=== PATIENT | male | born 1950 | race Caucasian/White ===

== ENCOUNTER 2023-06-27 19:01 | Emergency (ER) | payer MEDICARE, SELFPAY ==
[2023-06-27 19:04] VITALS: BP 146/91; PULSE 97; RESP 18; TEMP 37.2; O2SAT 97; BMI 20.7
--- NOTE | 2023-06-27 19:14 | CRLHL7_ITS ---
For Patients: As a result of the Century Cures Act, medical imaging exams and procedure reports are released immediately into your electronic medical record. You may view this report before your referring provider. If you have questions, please contact your health care provider. INDICATION: History of colostomy, evaluate for bowel obstruction. Abdominal pain. TECHNIQUE: Multiplanar CT examination of the abdomen and pelvis were acquired without the use of intravenous contrast. COMPARISON: CT abdomen pelvis 08/10/2021. FINDINGS: Limited evaluation without the use of intravenous contrast. Lower chest: Linear bandlike opacifications of the lung bases likely due to subsegmental atelectasis and/or scarring. No focal consolidation. Normal heart size. No pleural effusions or pneumothorax. Liver: Normal. Gallbladder/Biliary: Normal. No biliary ductal dilitation. Pancreas: Normal. Spleen: Normal. Adrenal Glands: Normal. Kidneys: Normal size. No obstructive calculi or hydronephrosis. There are several nonobstructive calculi within the collecting system both kidneys bilaterally. Ureters: Unremarkable. Bladder: Small left posterior bladder diverticulum. Otherwise, unremarkable. 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 Nonvisualized appendix. No bowel obstruction. Severe colonic stool burden. Severe colonic diverticulosis, similar thickening of the sigmoid colonic wall, possibly underdistended. No pneumatosis intestinalis. Pelvic organs: Prostatomegaly. Peritoneum: No free fluid or pneumoperitoneum. Vessels: Normal. Evaluation for patency of the vessels is not evaluated on this noncontrast examination. Mild atherosclerotic disease. No portal venous gas. Lymph Nodes: No lymphadenopathy. Abdominal Wall/Soft Tissues: New/worsened left inguinal hernia containing loops of nonobstructed small bowel. Mild diffuse anasarca. Bones: Degenerative changes of the lumbar spine. Stable compression deformity of the L2 vertebral body. Grade 1 degenerative anterolisthesis of L4-5. No acute osseous abnormalities. IMPRESSION: Limited evaluation without the use of intravenous contrast. 1. Stable postsurgical changes status post partial colectomy with left lower quadrant colostomy, grossly unchanged. 2. There is a new left inguinal hernia containing loops of nonobstructed small bowel. No pneumatosis intestinalis. No free fluid within the hernia sac. 3. Severe colonic stool burden. Severe colonic diverticulosis without definite evidence of acute diverticulitis. Similar thickening to the sigmoid colon wall. 4. Enlarged prostate. Please note that all CT scans at this facility use dose modulation, iterative reconstruction, and/or weight-based dosing when appropriate to reduce radiation dose to as low as reasonably achievable. Dictated by Bertin Roche MD @ 06/27/2023 9:33:04 PM (Electronically Signed)
--- NOTE | 2023-06-27 19:14 | ED.GENADULT ---
HPI - General Adult General Time Seen by Provider: 19:15 Date Seen: 06/27/23 Chief complaint: Abdominal Pain Stated complaint: abdominal pain Time Seen by Provider: 06/27/23 19:03 Source: patient Mode of arrival: ambulatory Limitations: no limitations History of Present Illness HPI narrative: [age] male with history of colostomy done for a reason that he can not recall but he had done about 15 years ago he reports having had his colostomy ?drilled? in the past and feels he might need that again he still is having drainage over the last couple days but less output than normal. He has not felt ill no abdominal pain. He does have a what appears to be a hernia around the colostomy especially on the lateral border of the colostomy that is in the left lower quadrant he has not had fever. He has not had fever he has not had chills, he has had no blood in the stool, he is concerned about obstruction. He has been cared for at [facility] and has not been our facility Related Data Home Medications Medication Instructions Recorded Confirmed No Known Home Medications 06/27/23 06/27/23 Allergies Allergy/AdvReac Type Severity Reaction Status Date / Time No Known Drug Allergies Allergy Verified 06/27/23 19:03 Review of Systems Status of ROS: Reports: 6 or more systems reviewed and unremarkable except as noted in History and below PFSH PFS Social History Smoking Status: Current every day smoker What tobacco products do you use: cigarettes Smoking packs per day: 0.8 Smoking cigarettes per day: 16.0 Do you use any of these nicotine containing products: None Second hand tobacco smoke exposure: No How often do you have a drink containing alcohol: 2-4 times a month How many standard drinks containing alcohol do you have on a typical day: 5 or 6 How often do you have six or more drinks on one occasion: Weekly AUDIT-C Alcohol total score: 7 Non-prescribed substance use: marijuana (any form) Non-prescribed substance use details: once a week smokes marijuana. service: Yes Exam Narrative: Exam Narrative: Objective: His vital signs look within normal limits, no fever Pulses regular Abdomen nondistended he has got a little bit of what feels like a hernia around his stoma, the stoma reduces and appears reddened per slightly protrude protruding but does not appear to be necrotic or infected or have other abnormality, there is brownish stool in his colostomy bag. He reports that is been there for the last day or so Extremities are no edema Neurologic nonfocal The patient's skin he has what appears to be skin graft on his lip. Const: Vital Signs, click to edit/add: Vital Signs - 24 hr 06/27/23 19:04 06/27/23 21:00 Temperature 98.9 F Pulse Rate [Pulse Oximeter] 97 76 Respiratory Rate 18 Blood Pressure [Le ft Upper Arm] 146/91 H Pulse Oximetry 97 96 Oxygen Delivery Me thod Room Air Room Air Course Vital Signs Vital signs: Initial Vital Signs Temperature 98.9 F 06/27/23 19:04 Temperature Source Temporal Artery Scan 06/27/23 19:04 Pulse Rate 97 06/27/23 19:04 Pulse Rhythm Regular 06/27/23 19:04 Respiratory Rate 18 06/27/23 19:04 Blood Pressure 146/91 H 06/27/23 19:04 Blood Pressure Mean 109 H 06/27/23 19:04 Blood Pressure Position Supine 06/27/23 19:04 Pulse Oximetry 97 06/27/23 19:04 Oxygen Delivery Method Room Air 06/27/23 19:04 Vital Signs Temperature 98.9 F 06/27/23 19:04 Pulse Rate 97 06/27/23 19:04 Respiratory Rate 18 06/27/23 19:04 Blood Pressure 146/91 H 06/27/23 19:04 Pulse Oximetry 97 06/27/23 19:04 Oxygen Delivery Method Room Air 06/27/23 19:04 Temperature 98.9 F 06/27/23 19:04 Pulse Rate 76 06/27/23 21:00 Respiratory Rate 18 06/27/23 19:04 Blood Pressure 146/91 H 06/27/23 19:04 Pulse Oximetry 96 06/27/23 21:00 Oxygen Delivery Method Room Air 06/27/23 21:00 Medications Administered Medications: Generic Name Dose Route Start Last Admin Trade Name Freq PRN Reason Stop Dose Admin Sodium Chloride 1,000 mls @ 6,000 mls/hr 06/27/23 20:15 06/27/23 20:30 0.9 % Sodium Chloride 1000 Ml IV 06/27/23 20:24 Infused .Q10M HIRAL Infusion Morphine Sulfate 4 mg 06/27/23 20:03 06/27/23 20:11 Morphine 4 Mg/Ml Inj IVP 06/27/23 20:04 4 mg ONCE ONE Administration Medical Decision Making MDM Narrative Medical decision making narrative: [age] white male with history of colostomy for unclear etiology, has been care for at [facility]. This time the patient is here concerned about obstruction. I think at this point a CT scan to be appropriate. We could talk to our general surgeon that point on-call. Patient has had not any illness feeling or diarrhea or vomiting. No evidence of redness around the stoma he does appear to have a hernia near the stoma and some bulging. This is just lateral to the stoma and he reports that is been intermittent. He does report intermittent discomfort every few hours and was brought in by ambulance. Addendum: 7:24 p.m. the patient has an old chart that I was able to access and showed an L2 compression fracture, colostomy for abdominal abscess and sigmoid diverticulitis. History of kidney stones. 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 Addendum 9:20 p.m. patient has been waiting for his read on his CT scan. He does appear to have a peristomal hernia, but there does appear to be air and gas throughout his colon and in his stoma. He did receive some IV fluid and 4 mg of morphine as he has intermittent colicky type pain. At this point will sign the patient over and have the CT reading come back to our my colleague and can discuss with Dr. Swartz our surgeon regarding treatment planning. Lab Data Labs: Lab Results 06/27/23 Range/Units 19:29 WBC 10.34 (4.50-11.00) K/uL RBC 4.23 L (4.30-5.90) m/uL Hgb 13.6 (13.5-17.5) gm/dL Hct 40.6 (37.0-53.0) % MCV 96 (80-100) fL MCH 32 (26-34) pg MCHC 34 (32-36) gm/dL RDW Coeff of Ralph 15.7 H (11.5-15.5) % Plt Count 156 (140-440) K/uL Neut % (Auto) 76.3 H (42.0-72.0) % Lymph % (Auto) 9.2 L (20-44) % [place] % (Auto) 13.6 H (0.0-11.0) % Eos % (Auto) 0.4 (0.0-7.0) % Baso % (Auto) 0.3 (0.0-3.0) % Neut # (Auto) 7.90 H (1.7-7.0) K/uL Lymph # (Auto) 1.00 (0.90-2.90) K/uL [place] # (Auto) 1.40 H (0.00-0.90) K/UL Eos # (Auto) 0.04 (0.00-0.50) K/uL Baso # (Auto) 0.03 (0.00-0.30) K/uL Abs Immat Gran (auto) 0.02 (0.00-0.30) K/uL Imm/Tot Granulo (auto) 0.2 % Sodium 136 (135-149) mmol/L Potassium 4.0 (3.6-5.1) mmol/L Chloride 106 (96-114) mmol/L Carbon Dioxide 24 (20-32) mmol/L Anion Gap 6 L (7-15) mEq/L BUN 19 (7-30) mg/dL Creatinine 0.9 (0.5-1.5) mg/dL Estimated Creat Clear 59.98 Estimated GFR 91 ml/min Glucose 110 (60-115) mg/dL Calcium 9.2 (8.4-10.6) mg/dL C-Reactive Protein 3.8 H (0.5-1.0) mg/dL Discharge Plan Discharge Clinical Impression: Abdominal pain Prescriptions: No Action No Known Home Medications
[2023-06-27 19:36] LABS: Basophils Absolute Auto 0.03 K/uL (0.00-0.30); Basophils Percent Auto 0.3 % (0.0-3.0); Eosinophils Absolute Auto 0.04 K/uL (0.00-0.50); Eosinophils Percent Auto 0.4 % (0.0-7.0); Hematocrit 40.6 % (37.0-53.0); Hemoglobin* 13.6 gm/dL (13.5-17.5); Immature Granulocytes Abs Auto 0.02 K/uL (0.00-0.30); Immature Granulocytes Pct Auto 0.2 %; Lymphocytes Percent Auto 9.2 % (20-44); Mean Corpuscular HGB Conc 34 gm/dL (32-36); Mean Corpuscular Hemoglobin 32 pg (26-34); Mean Corpuscular Volume 96 fL (80-100); Monocytes Percent Auto 13.6 % (0.0-11.0); Neutrophils Percent Auto 76.3 % (42.0-72.0); Platelet Count* 156 K/uL (140-440); RDW Coefficient of Variation % 15.7 % (11.5-15.5); Red Blood Count 4.23 m/uL (4.30-5.90); White Blood Count* 10.34 K/uL (4.50-11.00)
[2023-06-27 19:41] LABS: Slide Review Reflex No
[2023-06-27 19:50] LABS: Chloride* 106 mmol/L (96-114); Sodium* 136 mmol/L (135-149)
[2023-06-27 19:52] LABS: Creatinine* 0.9 mg/dL (0.5-1.5); Est. Creatinine Clearance* 59.98; Estimated Glomerular Filt Rate 91 ml/min
[2023-06-27 19:53] LABS: Anion Gap 6 mEq/L (7-15); Blood Urea Nitrogen* 19 mg/dL (7-30); Calcium* 9.2 mg/dL (8.4-10.6); Carbon Dioxide* 24 mmol/L (20-32); Glucose* 110 mg/dL (60-115)
[2023-06-27] MEDS: 0.9 % SODIUM CHLORIDE 1000 ml 1,000 ML 6000 ML IV (20:11)
[2023-06-27] MEDS: MORPHINE 4 MG/ML INJ IVP (20:11)
[2023-06-27 20:22] LABS: C Reactive Protein* 3.8 mg/dL (0.5-1.0)
[2023-06-27 21:00] VITALS: PULSE 76; O2SAT 96
--- NOTE | 2023-06-27 21:48 | ED_ITS ---
HPI - Abdominal Pain General Chief Complaint: Abdominal Pain Stated Complaint: abdominal pain Time Seen by Provider: 06/27/23 19:03 Source: patient Mode of arrival: ambulatory Limitations: no limitations Related Data Home Medications Medication Instructions Recorded Confirmed No Known Home Medications 06/27/23 06/27/23 Allergies Allergy/AdvReac Type Severity Reaction Status Date / Time No Known Drug Allergies Allergy Verified 06/27/23 19:03 PFSH PFS Social History Smoking Status: Current every day smoker What tobacco products do you use: cigarettes Smoking packs per day: 0.8 Smoking cigarettes per day: 16.0 Do you use any of these nicotine containing products: None Second hand tobacco smoke exposure: No How often do you have a drink containing alcohol: 2-4 times a month How many standard drinks containing alcohol do you have on a typical day: 5 or 6 How often do you have six or more drinks on one occasion: Weekly AUDIT-C Alcohol total score: 7 Non-prescribed substance use: marijuana (any form) Non-prescribed substance use details: once a week smokes marijuana. service: Yes Exam Const: Vital Signs, click to edit/add: Vital Signs - 24 hr 06/27/23 19:04 06/27/23 21:00 Temperature 98.9 F Pulse Rate [Pulse Oximeter] 97 76 Respiratory Rate 18 Blood Pressure [Le ft Upper Arm] 146/91 H Pulse Oximetry 97 96 Oxygen Delivery Me thod Room Air Room Air Course Vital Signs Vital signs: Initial Vital Signs Temperature 98.9 F 06/27/23 19:04 Temperature Source Temporal Artery Scan 06/27/23 19:04 Pulse Rate 97 06/27/23 19:04 Pulse Rhythm Regular 06/27/23 19:04 Respiratory Rate 18 06/27/23 19:04 Blood Pressure 146/91 H 06/27/23 19:04 Blood Pressure Mean 109 H 06/27/23 19:04 Blood Pressure Position Supine 06/27/23 19:04 Pulse Oximetry 97 06/27/23 19:04 Oxygen Delivery Method Room Air 06/27/23 19:04 Vital Signs Temperature 98.9 F 06/27/23 19:04 Pulse Rate 97 06/27/23 19:04 Respiratory Rate 18 06/27/23 19:04 Blood Pressure 146/91 H 06/27/23 19:04 Pulse Oximetry 97 06/27/23 19:04 Oxygen Delivery Method Room Air 06/27/23 19:04 Temperature 98.9 F 06/27/23 19:04 Pulse Rate 78 06/27/23 22:12 Respiratory Rate 16 06/27/23 22:12 Blood Pressure 168/86 H 06/27/23 22:12 Pulse Oximetry 97 06/27/23 22:12 Oxygen Delivery Method Room Air 06/27/23 22:12 Medications Administered Medications: Discontinued Medications Generic Name Dose Route Start Last Admin Trade Name Freq PRN Reason Stop Dose Admin Sodium Chloride 1,000 mls @ 6,000 mls/hr 06/27/23 20:15 06/27/23 20:30 0.9 % Sodium Chloride 1000 Ml IV 06/27/23 20:24 Infused .Q10M HIRAL Infusion Ketorolac Tromethamine 30 mg 06/27/23 21:48 06/27/23 21:56 Ketorolac 30 Mg/Ml Inj IVP 06/27/23 21:49 30 mg ONCE ONE Administration Morphine Sulfate 4 mg 06/27/23 20:03 06/27/23 20:11 Morphine 4 Mg/Ml Inj IVP 06/27/23 20:04 4 mg ONCE ONE Administration MDM - Abdominal Pain Lab Data Labs: Lab Results 06/27/23 Range/Units 19:29 WBC 10.34 (4.50-11.00) K/uL RBC 4.23 L (4.30-5.90) m/uL Hgb 13.6 (13.5-17.5) gm/dL Hct 40.6 (37.0-53.0) % MCV 96 (80-100) fL MCH 32 (26-34) pg MCHC 34 (32-36) gm/dL RDW Coeff of Ralph 15.7 H (11.5-15.5) % Plt Count 156 (140-440) K/uL Neut % (Auto) 76.3 H (42.0-72.0) % Lymph % (Auto) 9.2 L (20-44) % [place] % (Auto) 13.6 H (0.0-11.0) % Eos % (Auto) 0.4 (0.0-7.0) % Baso % (Auto) 0.3 (0.0-3.0) % Neut # (Auto) 7.90 H (1.7-7.0) K/uL Lymph # (Auto) 1.00 (0.90-2.90) K/uL [place] # (Auto) 1.40 H (0.00-0.90) K/UL Eos # (Auto) 0.04 (0.00-0.50) K/uL Baso # (Auto) 0.03 (0.00-0.30) K/uL Abs Immat Gran (auto) 0.02 (0.00-0.30) K/uL Imm/Tot Granulo (auto) 0.2 % Sodium 136 (135-149) mmol/L Potassium 4.0 (3.6-5.1) mmol/L Chloride 106 (96-114) mmol/L Carbon Dioxide 24 (20-32) mmol/L Anion Gap 6 L (7-15) mEq/L BUN 19 (7-30) mg/dL Creatinine 0.9 (0.5-1.5) mg/dL Estimated Creat Clear 59.98 Estimated GFR 91 ml/min Glucose 110 (60-115) mg/dL Calcium 9.2 (8.4-10.6) mg/dL C-Reactive Protein 3.8 H (0.5-1.0) mg/dL Discharge Plan Discharge Clinical Impression: Abdominal pain, Inguinal hernia Patient Disposition: Home, Self-Care Condition: Stable Additional Instructions: Take medication as needed and indicated. Use [id number] medicines for constipation such as MiraLax, Dulcolax, senna, Metamucil, magnesium citrate, and others. Follow up with MD for ongoing management. Return if worsening. Prescriptions: No Action No Known Home Medications Stand Alone Forms: [email or web address] Info Instructions
[2023-06-27] MEDS: KETOROLAC 30 MG/ML inj IVP (21:56)
[2023-06-27 22:12] VITALS: BP 168/86; PULSE 78; RESP 16; O2SAT 97
== END 2023-06-27 22:13 | disposition home or self-care (01) ==
PROVIDERS: Emergency Provider Family Medicine
DX: R10.9 Unspecified abdominal pain (principal)
CPT/HCPCS: 36415; 74176; 80048; 82565; 85025; 86140; 94761; 95992; 96374; 96375; 99284; J1885; J2270; J7030

== ENCOUNTER 2023-09-27 08:50 | Emergency (ER) | payer MEDICARE, SELFPAY ==
[2023-09-27 09:00] VITALS: BP 170/85; PULSE 85; RESP 20; TEMP 36.9; O2SAT 96; BMI 22.9
[2023-09-27 09:06] VITALS: BP 165/87
--- NOTE | 2023-09-27 09:12 | ED.GENADULT ---
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 His has a similar illness she has asthma and she is on Zithromax. He presents to the ER for evaluation. He is not short of breath, has no chest pain, has no rigors, has no fever. He has not had a productive cough. Related Data Home Medications Medication Instructions Recorded Confirmed No Known Home Medications 06/27/23 06/27/23 Allergies Allergy/AdvReac Type Severity Reaction Status Date / Time No Known Drug Allergies Allergy Verified 06/27/23 19:03 Review of Systems Status of ROS: Reports: 6 or more systems reviewed and unremarkable except as noted in History and below PFSH PFS Social History Smoking Status: Current every day smoker What tobacco products do you use: cigarettes Smoking packs per day: 0.8 Smoking cigarettes per day: 16.0 Do you use any of these nicotine containing products: None Second hand tobacco smoke exposure: No How often do you have a drink containing alcohol: 2-4 times a month How many standard drinks containing alcohol do you have on a typical day: 5 or 6 How often do you have six or more drinks on one occasion: Weekly AUDIT-C Alcohol total score: 7 Non-prescribed substance use: marijuana (any form) Non-prescribed substance use details: once a week smokes marijuana. service: Yes Exam Narrative: Exam Narrative: Objective: Patient is in no distress pleasant man O2 sat 96% on room air Slightly hypertensive, afebrile HEENT shows clear rhinorrhea, throat clear, neck supple chest is clear bilaterally no rales or wheezing Heart rhythm regular heart murmur Extremities neurologic grossly nonfocal good peripheral perfusion noted Const: Vital Signs, click to edit/add: Vital Signs - 24 hr 09/27/23 09:00 09/27/23 09:06 09/27/23 09:21 Temperature 98.4 F 98.4 F Pulse Rate [Pulse Oximeter] 85 85 Respiratory Rate 20 20 Blood Pressure [Ri ght Upper Arm] 170/85 H 165/87 H 165/87 H Pulse Oximetry 96 Oxygen Delivery Me thod Room Air Course Vital Signs Vital signs: Initial Vital Signs Temperature 98.4 F 09/27/23 09:00 Temperature Source Temporal Artery Scan 09/27/23 09:00 Pulse Rate 85 09/27/23 09:00 Pulse Rhythm Regular 09/27/23 09:00 Respiratory Rate 20 09/27/23 09:00 Blood Pressure 170/85 H 09/27/23 09:00 Blood Pressure Mean 113 H 09/27/23 09:00 Blood Pressure Position Supine 09/27/23 09:00 Pulse Oximetry 96 09/27/23 09:00 Oxygen Delivery Method Room Air 09/27/23 09:00 Vital Signs Temperature 98.4 F 09/27/23 09:00 Pulse Rate 85 09/27/23 09:00 Respiratory Rate 20 09/27/23 09:00 Blood Pressure 170/85 H 09/27/23 09:00 Pulse Oximetry 96 09/27/23 09:00 Oxygen Delivery Method Room Air 09/27/23 09:00 Temperature 98.4 F 09/27/23 09:21 Pulse Rate 85 09/27/23 09:21 Respiratory Rate 20 09/27/23 09:21 Blood Pressure 165/87 H 09/27/23 09:21 Pulse Oximetry 96 09/27/23 09:00 Oxygen Delivery Method Room Air 09/27/23 09:00 Medical Decision Making [facility] Narrative Medical decision making narrative: 73 year white male without any pulmonary history presents with runny nose cough sneezing. This likely acute upper respiratory infection, symptomatic management with Tylenol fluids steam rest. Given his lack of fever hypoxia or other abnormality would not treat with antibiotics, his lung exam is normal. I would check for COVID/influenza/RSV, and will call back the results, recheck with regular doctor next 3-5 days not improving or resolving. Lab Data Labs: Lab Results 09/27/23 Range/Units Unknown SARS-CoV-2 (PCR) Negative SARS-CoV-2 (Negative) Influenza Type A (PCR) POSITIVE PCR FLU A A (Negative) Influenza Type B (PCR) Negative PCR FLU B (Negative) RSV (PCR) Negative PCR RSV (Negative) Discharge Plan Discharge Clinical Impression: Acute upper respiratory infection Patient Disposition: Home, Self-Care Condition: Stable Additional Instructions: Rest, fluids, steam, symptomatic measures, Tylenol as needed, recheck if problems or concerns or not resolving over the next 3-5 days. We will call back the results to your viral studies from your nose swab . Activity Level: No Restrictions Discharge Diet: Regular Prescriptions: No Action No Known Home Medications Follow Up/Referrals: Provider,Not a Local [Primary Care Provider] - Stand Alone Forms: [employer] Info Instructions
[2023-09-27 09:21] VITALS: BP 165/87; PULSE 85; RESP 20; TEMP 36.9
[2023-09-27 09:55] LABS: PCR FLU A POSITIVE PCR FLU A (Negative); PCR FLU B Negative PCR FLU B (Negative); PCR RSV Negative PCR RSV (Negative); SARS PCR* Negative SARS-CoV-2 (Negative)
== END 2023-09-27 09:22 | disposition home or self-care (01) ==
LOC: ED 09:17
PROVIDERS: Emergency Provider Family Medicine
DX: J06.9 Acute upper respiratory infection, unspecified (principal)
CPT/HCPCS: 87631; 99283

== ENCOUNTER 2023-12-26 15:53 | Emergency (ER) | payer MEDICARE, SELFPAY ==
--- NOTE | 2023-12-26 16:49 | PC.NURSE ---
Pt checked into the ER stating that he only needed colostomy bags. He had run out at home and was afraid his current bag would burst. Pt wanted to know what supplies we had in the hospital. Pt shown supplies and stated he was comfortable with using the bags we had here. Pt stated he had other supplies at home. Pt given two colostomy bags and one ostomy wafer. Pt stated he did not want to see a doctor. Pt signed a declination of services after this nurse read pt form. THis nurse told pt that he was welcome to a medical examination at any time. Pt stated he understood and was appreciative of getting the colostomy bags. Pt left ER, ambulatory, after signing declination.
--- NOTE | 2023-12-30 13:37 | PC.NURSE ---
Patient came to the ER asking for another colostomy bag. Printing Press Operator Apprentice met with patient to understand his situation better. Patient stated I ran out and [facility] won't send me anymore this month and my bag is nasty and I need a new one. Patient gave technical writer and editor [facility]. Spoke with a new accounts banking representative at [facility] who stated that patient's prescription is for 20/month. Patient's prescription was able to be refilled on 12/27 and this was initiated and should arrive at patients [facility] today or tomorrow. Language Tutor also stated that patient's insurance will cover 40/month but they would need a new prescription. Printing Press Operator Apprentice asked for prescriber information: Michelle PONCE or Blessing Ho MD at [facility]. Provided patient with this information and phone number to call provider to get a new [facility] Also gave patient one more colostomy bag to get by until his shipment arrives. Patient was very appreciative. Did offer patient to be seen in our ER but he declined. Patient stated Thank you very much, you won't be seeing me again after this.
== END 2023-12-26 16:55 | disposition home or self-care (01) ==
LOC: ED 16:50
PROVIDERS: Emergency Provider Family Medicine
DX: Z53.21 Procedure and treatment not carried out due to patient leaving prior to being seen by health care provider (principal)

== ENCOUNTER 2024-11-07 18:20 | Emergency (ER) | payer MEDICARE, SELFPAY ==
--- OUTSIDE RECORDS SUMMARY | 2024-11-07 18:22 | XMS_ITS | Clinical Summary ---
Author Organization [email or web address] [facility] Address [address] [place] [id number] Care Team Providers Care Switch Technician Name Role Phone Andie Pineda RN Unavailable [phone] Joleen Chandlre RN Unavailable [phone] Chana Mandujano RN Unavailable [phone] Irma Faustin MD Primary Care Provider Allergies No known active allergies Medications Colostomy Bags miscIndications: Colostomy in place (HC) As directed. 40 Each 02/23/2024 Active Active Problems Problem Noted Date Diagnosed Date History of SCC (squamous cell carcinoma) of skin 02/23/2024 Overview (02/23/2024): Lip History of colon cancer 02/23/[address] 09/08/2016 Overview (09/08/2016): Aug 2016: takedown recommended, Patient adamantly declined. Tobacco use 07/04/2013 Resolved Problems Problem Noted Date Diagnosed Date Resolved Date Malignant neoplasm of sigmoi d colon, suspected 08/07/2021 02/23/2024 Lymphadenopathy, abdominal 08/07/2021 0 02/23/2024 Hydroureter, left 08/07/2021 02/23/2024 SCC (squamous cell carcinoma), lip 04/16/2021 02/23/2024 Urinary retention 03/06/2020 02/23/2024 Overview (03/06/2020): Feb 2020: over 1,000ml with placement of seay in the ER. also UTI. Patient returned to ER 3 days later requesting removal of Seay. Renal lithiasis 02/29/2020 02/23/2024 Overview (02/29/2020): Feb 2020: 7mm Right ureteral stone. Gross hematuria 02/13/2020 02/23/2024 Small bowel obstruction 07/17/201807/27 Screening for colon cancer 09/08/2016 0 08/12/2018 Overview (09/08/2016): Aug 2016: had colonoscopy in hospital, but poor prep, Patient declined recommendation for repeat colonoscopy. Abdominal pain 08/30/2016 08/12/2018 Constipation 08/30/2016 08/12/2018 Left inguinal hernia 12/12/2014 019 Diverticulitis 11/30/2014 11/30/2014 Leukocytosis 11/30/2014 08/12/2018 Diverticulitis of intestine with perforation and abscess without bleeding 11/30/2014 08/12/2018 Nephrolithiasis 08/12/2018 Overview (07/02/2012): ESWL x 1 Family History * Patient is adopted Medical History Relation Name Comments Arthritis Father Anesthesia Problem No Family History Blood Disease No Family History Clotting disorder No Family History Relation Name Status Comments Father Mother Social History Tobacco Use Types Packs/Day Years Used Date Smoking Tobacco: Every Day Cigarettes 0.5 35.3 Started: 1989 Smokeless Tobacco: Never Tobacco Cessation:Ready to Q uit: No; Counseling Given: Yes Comments:TIP 08/13/21 Alcohol Use Standard Drinks/Week Comments Yes 6 (1 standard drink = 0.6 oz pure alcohol) 6-7 drinks at a time; once a week on average PHQ-2 Answer Date Recorded PHQ-2 TOTAL SCORE 0 02/23/2024 Social Connections Answer Date Recorded Do you often feel lonely or isolated from those around you? 0 02/23/2024 Financial Resource Strain Answer Date R ecorded Difficulty of Paying Living Expenses 3 02/23/2024 Difficulty of Paying Living Expenses Not on file 02/23/2024 Food Insecurity Answer Date Recorded Do you worry your food will run out before you are able to buy more? 1 02/23/2024 Transportation Needs Answer Date Record ed Does lack of transportation keep you from medica l appointments? 1 02/23/2024 Does lack of transportation keep you from work, meetings or getting things that you need? 1 02/23/2024 Housing Stability Answer Date Recorded What is your housing situation today? 1 02/23/2024 Utilities Answer Date Recorded Do you have trouble paying f or utilities (for example, heat, electricity, water, phone)? 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 Gender Identity Not on file Sexual Orientation Not on file Occupation Industry Job Start Date Job End Date Disability Not on file Not on file Not on file Obstetrics History Last Filed Vital Signs Vital Sign Reading Time Taken Comments Blood Pressure 112/70 02/23/2024 7:39 AM CDT Pulse 80 02/23/2024 7:39 AM CDT Temperature 36.4 C (97.6 F) 08/14/2021 8:00 AM [employer]ING [employer] SERVICE WORKER Respiratory Rate 16 08/14/2021 8:00 AM [employer]ING [employer]OR SERVICE WORKER Oxygen Saturation 98% 02/23/2024 7:39 AM CDT Inhaled Oxygen Concentration - - Weight 63.1 kg (139 lb 3.2 oz) 02/23/2024 7:39 A M CDT Height 169.5 cm (5' 6.73) 02/23/2024 7:39 AM CD T Body Mass Index 21.98 02/23/2024 7:39 AM CDT Plan of Treatment Upcoming Encounters Date Type Department Care Team (Late st Contact Info) Description 11/09/2024 10:40 AM CDT [place] [facility] [place] [address] [place] [address] [place] [address] [place], [place] [id number] Health Maintenance Due Date Last Done Comments Tdap 1961 Hepatitis C screening for ag e 18-79 1969 Pneumococcal series for age 50+ (1 of 2 - PCV) 1970 Tetanus booster [address] (for lung CA) ag e 50-80 2001 Zoster (shingles) series for age 50+ (1 of 2) 2001 COVID-19 vaccine series (2023- season) 2024 BMI (ht and wt on same day) for age 18+ 02/22/2025 02/23/2024, 05/06/2021, 04/17/2021, Additional history exists Medicare Wellness for age 65+ 02/23/2025 02/23/2024, 12/29/2018 Depression screening for age 12+ 02/24/2025 02/25/2024, 02/23/2024, 12/29/2018, Additional history exists Influenza Vaccine (Season Ended) 2025 RSV vaccine for adults or (1 - 1-dose 75+ series) 2026 Flex Sig for age 45-75 08/09/2026 08/09/2021, 2016 Lipids for age 45-75 02/22/2029 02/23/2024, 05/24/20 12 AAA screening age 65-74 Completed 08/10/19, 07/16/2018, 12/03/2014, Additional history exists Medical Devices Implanted Type Area Cpht Device Identifier Shelf Expiration Date Model / Serial / Lot [id number] 1mesh 8x16cm Alloderm Rtu Thickhuman Implanted:Qty: 1 on 07/16/2018 by Lisseth Waters MD at [facility] Explanted:at [facility] (Quantity not on file) Left: Abdomen [employer] - Inamed 05/26/2020 [id number] / [id number] / Adhesion Barrier 3x4in Interceed Absorb - [id number] Implanted:Qty: 1 on 07/16/2018 by Lisseth Waters MD at [facility] Left: Abdomen [employer] / Uro 09/23/2021 [id number]# / / [id number] Adhesion Barrier 3x4in Interceed Absorb - [id number] Implanted:Qty: 1 on 07/16/2018 by Lisseth Waters MD at [facility] [employer] / Uro 06/25/2020 [id number]# / / [id number] Gore Seamer 3.5mm Implanted:Qty: 1 on 04/22/2021 by Edin Odonnell MD at [facility] Explanted:at [facility] (Quantity not on file) Right: Neck 09/28/2025 [id number] / / [id number] Description:VAT OVERHAULER 3.5MM Procedures Procedure Name Priority Date/Time Associated Diagnosis Comments LIPID PANEL W REFLEX MEASURED LDL Routine 02/23/2024 8:06 AM CDT Screening, lipid CT ABDOMEN PELVIS W Routine 08/10/2021 1 0:13 AM [employer]ING [employer] SERVICE WORKER FLEXIBLE SIGMOIDOSCOPY 12:36 PM [employer]ING [employer] SERVICE WORKER from Last 3 Months or Most Recently Relevant to Health Maintenance Results * (ABNORMAL) LIPID PANEL W REFLEX MEASURED LDL (02/23/2024 8:06 AM CDT) CHOLESTEROL,TOTAL 263(H) 100 - 199 mg/dL 02/23/2024 5:14 PM CDT [employer] [facility] Comment: Cholesterol, Total Reference Ranges Desirable <200 mg/dL Borderline 200-239 mg/dL High >=240 mg/dL TRIGLYCERIDES 121 <150 mg/dL 02/23/2024 5:14 PM CDT [employer] [facility] HDL CHOLESTEROL 94 >40 mg/dL 5:14 PM CDT [facility] NON-HDL CHOLESTEROL 169(H) <145 mg/dl 02/23/2024 5:14 PM CDT [facility] CHOL/HDL RATIO 2.80 <4.50 02/23/2024 5:14 PM CDT [facility] LDL CHOLESTEROL 145(H) <=130 mg/dL 02/23/2024 5:14 PM CDT [facility] VLDL CHOLESTEROL 24 <=30 mg/dL 02/23/2024 5:14 PM CDT [facility] PROVIDER ORDERED STATUS RANDOM 02/23/2024 5:14 PM CDT [facility] Blood BLOOD SPECIMEN / Unknown Venipuncture / Unknown 02/23/2024 8:06 AM CDT 02/23/2024 8:06 AM CDT us Irma Faustin MD CHEMISTRY Final R esult [facility] [address] [place] [address], [place] * CT ABDOMEN PELVIS W (08/10/2021 10:13 AM [employer]ING [employer]OR SERVICE WORKER) Anatomical Region Laterality Modality Abdomen, Pelvis, AORTA, LIVER, SPLEEN Computed Tomography 08/10/2021 5:35 PM [employer]ING [employer] SERVICE WORKER Narrative 08/10/2021 5:35 PM [employer]ING [employer]OR SERVICE WORKER For Patients: As a result of the Cures Act, medical imaging exams and procedure reports are released immediately into your electronic medical record. You may view this report before your referring provider. If you have questions, please contact your health care provider. Indication: Abdominal pain Technique: Contrast CT abdomen pelvis with 65 mL on the 350 Comparison: CT abdomen pelvis 07/16/2018 Findings: Heart size normal. No pericardial effusion. Lung bases are clear. The liver pancreas adrenal glands unremarkable. splenic granuloma. Partial colectomy. . Left lower quadrant colostomy with peristomal hernia. No dilated bowel loops seen. Sigmoid colon demonstrates wall thickening. With nonobstructing right renal calcification no hydronephrosis on the right. Normal caliber abdominal aorta. With diffuse mesenteric edema. Moderate left hydronephrosis hydroureter with dilatation of the proximal and mid ureter to the distal 3rd of the ureter with narrowing at this location. No obstructing stone is seen. At the level of the dilated distal left ureter there is soft tissue mass measuring approximately 2.8 x 3.9 centimeters 2/101 likely reflecting adenopathy. There is left pelvic sidewall confluent adenopathy which surrounds the iliac vessels. The prostate gland is enlarged. There is anasarca. Tiny focus of air in the right probable abdominal wall. Air in the urinary bladder. Enlarged prostate gland. Diverticulosis. Superior endplate compression of L2 age indeterminate. No suspicious bony lesions are seen. Impression: 1. Moderate left hydronephrosis and hydroureter with dilatation of left ureter to the distal 3rd of the ureter. There is retroperitoneal adenopathy confluent adenopathy along the left pelvic sidewall likely causing the obstruction. No obstructing stone is seen. Enlarged prostate gland. 2. Diverticulosis. No bowel obstruction seen. Bowel wall thickening of the sigmoid colon. 3. Partial colectomy. Left lower quadrant ostomy with peristomal hernia. 4. Anasarca. Diffuse mild mesenteric edema. Please note that all CT scans at this facility use dose modulation, iterative reconstruction, and/or weight-based dosing when appropriate to reduce radiation dose to as low as reasonably achievable. Dictated by Brissa Shah MD @ 08/10/2021 2:12:46 PM (Electronically Signed) Procedure Note Brissa Shah MD - 08/10/2021 For Patients: As a result of the Cures Act, medical imagingexams and procedure reports are released immediately into your electronicmedical record. You may view this report before your referring provider.If you have questions, please contact your health care provider. Indication: Abdominal pain Technique: Contrast CT abdomen pelvis with 65 mL on the 350 Comparison: CT abdomen pelvis 07/16/2018 Findings: Heart size normal. No pericardial effusion. Lung bases are clear. The liver pancreas adrenal glands unremarkable. splenic granuloma. Partial colectomy. . Left lower quadrant colostomy with peristomal hernia.No dilated bowel loops seen. Sigmoid colon demonstrates wall thickening. With nonobstructing right renal calcification no hydronephrosis on theright. Normal caliber abdominal aorta. With diffuse mesenteric edema. Moderate left hydronephrosis hydroureter with dilatation of the proximaland mid ureter to the distal 3rd of the ureter with narrowing at thislocation. No obstructing stone is seen. At the level of the dilated distalleft ureter there is soft tissue mass measuring approximately 2.8 x 3.9centimeters 2/101 likely reflecting adenopathy. There is left pelvic sidewall confluent adenopathy which surrounds theiliac vessels. The prostate gland is enlarged. There is anasarca. Tiny focus of air in the right probable abdominal wall. Air in the urinary bladder. Enlarged prostate gland. Diverticulosis. Superior endplate compression of L2 age indeterminate. No suspicious bonylesions are seen. Impression: 1. Moderate left hydronephrosis and hydroureter with dilatation of leftureter to the distal 3rd of the ureter. There is retroperitonealadenopathy confluent adenopathy along the left pelvic sidewall likelycausing the obstruction. No obstructing stone is seen. Enlarged prostate gland. 2. Diverticulosis. No bowel obstruction seen. Bowel wall thickening of thesigmoid colon. 3. Partial colectomy. Left lower quadrant ostomy with peristomal hernia. 4. Anasarca. Diffuse mild mesenteric edema. Please note that all CT scans at this facility use dose modulation,iterative reconstruction, and/or weight-based dosing when appropriate toreduce radiation dose to as low as reasonably achievable. Dictated by Brissa Shah MD @ 08/10/2021 2:12:46 PM (Electronically Signed) us Norma Patino DO CT Final Result * FLEXIBLE SIGMOIDOSCOPY (08/09/2021 12:36 PM [employer]ING [employer]OR SERVICE WORKER) 08/09/2021 12:3 6 PM [employer]ING [employer]OR SERVICE WORKER Narrative Transcriptions Harley Hutson MD - 08/09/2021 1:16 PM CST [facility] Patient Name: Enoc Hopkins Procedure Date: 08/09/2021 Gender: Male Date of : 1950 Admit Type: Inpatient Procedure: Flexible Sigmoidoscopy Proceduralist: [facility]arly[facility] Indications/Pre-Op Diagnosis: Abnormal CT of the GI tract Medications: Monitored Anesthesia Care Procedure Description: The patient had risks, benefits and alternatives explained to andgave informed consent.The patient had a stable cardiopulmonary status and judged an adequate candidate for conscious sedation. The endoscope was introduced through the anus and advanced to the sigmoid colon. The flexible sigmoidoscopy was accomplished without difficulty. The patient tolerated the procedure well. The quality ofthe bowel preparation was good. Complications: No immediate complications. Estimated Blood Loss & Specimen: Estimated blood loss: none. Specimen collected: None Findings: Diverticula were found in the sigmoid colon. External and internal hemorrhoids were found. The exam was otherwise without abnormality. Impressions/Post-Op Diagnosis: - Diverticulosis in the sigmoid colon. - External and internal hemorrhoids. - The examination was otherwise normal. - No specimens collected. Recommendation: - Return patient to hospital horta. Harley Hutson MD 08/09/2021 1:15:42 PM This report has been signed electronically. Note Initiated On: 08/09/2021 12:36 PM Harley Hutson MD PROCEDURE ORD Final Result from Last 3 Months or Most Recently Relevant to Health Maintenance Insurance MEDICARE PART A HB ONLY MEDICA [employer] [facility] MEDICARE PPS Advance Directives * Full Code (Latest Code Status on File) Date Activated Date Inactivated Comments 08/07/2021 9:03 PM 08/14/2021 1:36 PM Question Answer Comments Code Status Discussion: Reviewed Preferences * Full Code Date Activated Date Inactivated Comments 04/22/2021 6:05 AM 04/26/2021 1:03 PM Question Answer Comments Code Status Discussion: Not Discussed * Full Code Date Activated Date Inactivated Comments 07/18/2018 7:13 AM 07/20/2018 5:00 PM Question Answer Comments Code Status Discussion: Not Discussed * Full Code Date Activated Date Inactivated Comments 08/30/2016 6:44 PM 09/02/2016 12:58 PM * Full Code Date Activated Date Inactivated Comments 12/03/2014 3:45 PM 12/08/2014 2:26 PM Care Teams Switch Technician Relationship Specialty [place] [address] [place] [address] PCP - General Family Practice 02/23/24 Andie Pineda RN [address] [address] Nurse Navigator - Oncology Oncology 03/15/21 Joleen Chandler, RN [address] [phone] Supply Chain Systems Manager - [facility] Registered Nurse 05/27/21 Chana Mandujano RN [address] [phone] Supply Chain Systems Manager - [facility] Registered Nurse 12/10/21 Jose Sherwood, RN [address] [address], [place], [place] [phone] Supply Chain Systems Manager - [facility] Registered Nurse 02/02/23
--- OUTSIDE RECORDS SUMMARY | 2024-11-07 18:23 | XMS_ITS | Continuity of Care Document ---
Author Name [facility] Organization [facility] Care Team Providers Care Accountant Property Name Role Phone [facility] Unavailable Unavailable Problems Combined list of problems from [facility] and [facility] facilities. It does not include entries that were removed or entered in error. Problem Status Onset Date Problem Type Date of Resolution Comments Source Abdominal Pain of the Left Lower Quadrant (ICD-9-CM 789.04) [facility] Elevated blood pressure reading without diagnosis of hypertension (ICD-9-CM 796. Active Condition [facility] Hematuria * (ICD-9-CM 599.7) Active Condition [facility] Active Condition [place] [facility] Tobacco Use Disorder, Continuous (ICD-9-CM 305.1) Active Condition [facility] Urinary tract infection * (ICD-9-CM 599.0) Active Condition [facility] Social History Combined list of available smoking, tobacco, and other social history from Department [facility] and [facility] facilities. Social History Type Response Date Comment Sourc e Tobacco smoking status NHIS CURRENT TOBACCO USER 02/06/2009 [facility] History of tobacco use CURRENT TOBACCO USER 06/14/2007 [facility] Advance Directives List of completed, amended, or rescinded Advance Directives on record at [facility] facilities. An actual copy of the Directive is not included. Date Advance Directive Provider Source 09/28/2007 ADVANCE DIRECTIVE [facility]
[2024-11-07 18:35] VITALS: BP 164/63; PULSE 97; RESP 18; TEMP 37.4; O2SAT 97; BMI 22.9
[2024-11-07 19:12] LABS: Appearance Urine Clear (Clear); Bilirubin Urine Negative (Negative); Blood Urine 3+ (Negative); Color Urine Yellow (Yellow); Glucose Urine Negative (Negative); Ketones Urine Negative (Negative); Leukocyte Esterase Urine 1+ (Negative); Nitrite Urine Positive (Negative); Protein Urine 2+ (Negative); Specific Gravity Urine 1.025 (1.000-1.030)
[2024-11-07 19:33] LABS: Bacteria Urine Many; Squamous Epithelial Cell Urine Few (None-Few); WBC Clumps Urine Few
--- NOTE | 2024-11-07 19:48 | ED.GENADULT ---
HPI - General Adult General Chief complaint: Urogenital Problems, Male Stated complaint: Prostate pain Time Seen by Provider: 11/07/24 19:19 History of Present Illness HPI narrative: This 74-year-old male comes in reporting lower abdominal pain with some dysuria symptoms including darker colored urine. The symptoms all began today. He does not have any fevers. He arrives here with normal vital signs. Related Data Home Medications ?Medication ?Instructions ?Recorded ?Confirmed No Known Home Medications 06/27/23 11/07/24 Allergies Allergy/AdvReac Type Severity Reaction Status Date / Time No Known Drug Allergies Allergy Verified 11/07/24 18:43 Review of Systems Status of ROS: Reports: 10 or more systems reviewed and unremarkable except as noted in History and below Narrative: Constitutional: No fevers, no weight gain or loss. Eyes: No discharge. No vision changes. HENT: No congestion, no sore throat, no ear pain. Cardiovascular: No chest pain, no palpitations. Respiratory: No shortness of breath, no wheezes, no cough. Gastrointestinal: No vomiting, no diarrhea. Lower abdominal pain. Genitourinary: Darkish red colored urine prior to arrival. Musculoskeletal: Normal range of motion. Skin: No rashes, no pruritis. Neurological: No dizziness, weakness, sensory change, speech change. Endo/Heme/Allergies: No bruising or bleeding. No polydipsia. Pysch: no suicidality, no anxiety, no insomnia. All other systems reviewed and are negative. [facility] Social History Smoking Status: Current every day smoker What tobacco products do you use: cigarettes Smoking packs per day: 0.8 Smoking cigarettes per day: 16.0 Do you use any of these nicotine containing products: None Second hand tobacco smoke exposure: No How often do you have a drink containing alcohol: 2-4 times a month How many standard drinks containing alcohol do you have on a typical day: 5 or 6 How often do you have six or more drinks on one occasion: Weekly AUDIT-C Alcohol total score: 7 Non-prescribed substance use: marijuana (any form) Non-prescribed substance use details: once a week smokes marijuana. service: Yes Exam Narrative: Exam Narrative: Constitutional: Well-developed, well-nourished, no acute distress. HEENT: Normocephalic, atraumatic. Neck: Normal range of motion. Nontender. Supple. Heart: Regular. No murmurs. Normal rate. Intact distal pulses. Lungs: Clear to auscultation. No chest discomfort. No wheezes, rhonchi, or rales. Abdomen: Normal bowel sounds. Tenderness in the lower abdomen.No rebound tenderness. Genitalia: Deferred. Back: No midline tenderness. Normal range of motion. Extremities: Normal range of motion. No injury. Skin: Intact. No rash. Warm. No erythema or pallor. Neurologic: No altered sensation. No weakness. Alert and oriented. Psychiatric: No suicidality. No anxiety or depression. No insomnia. Nursing notes and vitals signs are reviewed. Const: Vital Signs, click to edit/add: Vital Signs - 24 hr 11/07/24 18:35 Temperature 99.4 F Pulse Rate [Right Pulse Oximeter] 97 Respiratory Rate 18 Blood Pressure [Ri ght Forearm] 164/63 H Pulse Oximetry 97 Oxygen Delivery Me thod Room Air Course Vital Signs Vital signs: Initial Vital Signs Temperature 99.4 F 11/07/24 18:35 Temperature Source Temporal Artery Scan 11/07/24 18:35 Pulse Rate 97 11/07/24 18:35 Pulse Rhythm Regular 11/07/24 18:35 Pulse Strength 3+ Normal 11/07/24 18:35 Respiratory Rate 18 11/07/24 18:35 Blood Pressure 164/63 H 11/07/24 18:35 Blood Pressure Mean 96 11/07/24 18:35 Blood Pressure Position Sitting 11/07/24 18:35 Pulse Oximetry 97 11/07/24 18:35 Oxygen Delivery Method Room Air 11/07/24 18:35 Vital Signs Temperature 99.4 F 11/07/24 18:35 Pulse Rate 97 11/07/24 18:35 Respiratory Rate 18 11/07/24 18:35 Blood Pressure 164/63 H 11/07/24 18:35 Pulse Oximetry 97 11/07/24 18:35 Oxygen Delivery Method Room Air 11/07/24 18:35 Temperature 99.4 F 11/07/24 18:35 Pulse Rate 97 11/07/24 18:35 Respiratory Rate 18 11/07/24 18:35 Blood Pressure 164/63 H 11/07/24 18:35 Pulse Oximetry 97 11/07/24 18:35 Oxygen Delivery Method Room Air 11/07/24 18:35 Medical Decision Making MDM Narrative Medical decision making narrative: This patient comes in with dysuria symptoms as described above. He also has pain in his lower abdomen. He arrives here with normal vital signs and his exam is otherwise reassuring. Urinalysis shows evidence of infection with hematuria. the patient received prescription for Keflex 3 times daily for 10 days. He also received an oral dose of Pyridium. I advised him to follow-up with his primary physician or return if worsening. Lab Data Labs: Lab Results 11/07/24 Range/Units 19:01 Urine Color Yellow (Yellow) Urine Appearance Clear (Clear) Urine pH 7.0 (5.0-8.5) Ur Specific [place] 1.025 (1.000-1.030) Urine Protein 2+ A (Negative) Urine Glucose (UA) Negative (Negative) Urine Ketones Negative (Negative) Urine Blood 3+ A (Negative) Urine Nitrite Positive A (Negative) Urine Bilirubin Negative (Negative) Urine Urobilinogen 1.0 (0.2-1.0) Ur Leukocyte Esterase 1+ A (Negative) Urine RBC 10-25 A (0-2) Urine WBC 10-25 A (0-5) Urine WBC Clumps Few A (None) Ur Squamous Epith Cells Few (None-Few) Urine Bacteria Many A (None) Discharge Plan Discharge Clinical Impression: Urinary tract infection Patient Disposition: Home, Self-Care Condition: Stable Additional Instructions: Take medication as prescribed. Take plenty of fluids. Follow up with MD return if symptoms are persistent or worsening. Prescriptions: No Action No Known Home Medications Follow Up/Referrals: Provider,Not a Local [Primary Care Provider] - Stand Alone Forms: [employer] Info Instructions
[2024-11-07] MEDS: PHENAZOPYRIDINE HCL 200 MG TABLET PO (19:57)
--- OUTSIDE RECORDS SUMMARY | 2024-11-07 19:59 | XMS_ITS | Continuity of Care Document ---
Author Name [facility] Organization [facility] Care Team Providers Care Aeronautical Engineering Technologist Name Role Phone [facility] Unavailable Unavailable Problems Combined list of problems from [facility] and [facility] facilities. It does not include entries that were removed or entered in error. Problem Status Onset Date Problem Type Date of Resolution Comments Source Abdominal Pain of the Left Lower Quadrant (ICD-9-CM 789.04) Active Condition [facility] Elevated blood pressure reading without diagnosis of hypertension (ICD-9-CM 796. Active Condition [facility] Hematuria * (ICD-9-CM 599.7) Active Condition [facility] Active Condition [place] [facility] Tobacco Use Disorder, Continuous (ICD-9-CM 305.1) Active Condition [facility] Urinary tract infection * (ICD-9-CM 599.0) Active Condition [facility] Social History Combined list of available smoking, tobacco, and other social history from [facility] and [facility] facilities. Social History Type Response Date Comment Sourc e Tobacco smoking status NHIS CURRENT TOBACCO USER 02/06/2009 [facility] History of tobacco use CURRENT TOBACCO USER 06/14/2007 [facility] Advance Directives List of completed, amended, or rescinded Advance Directives on record at [facility] facilities. An actual copy of the Directive is not included. Date Advance Directive Provider Source 09/28/2007 ADVANCE DIRECTIVE [facility]
--- OUTSIDE RECORDS SUMMARY | 2024-11-07 19:59 | XMS_ITS | Data Portability ---
Author Organization [facility], [facility] Address [address] [place] [address] Care Team Providers Care Waiter/Waitress Tourist Class Name Role Phone GLEN ARMSTRONG Primary Care Provider Assessment No assessment recorded. Plan of Treatment Reminders Order Date Submit Date Provider Last Modified By Organization Details Last Modified Time Details Appointments None recorded. Lab None recorded. Referral None recorded. Procedures None recorded. Surgeries cystoscopy with bladder biopsy (SURG) 2021 022 [email or web address] Not available 12:49:03 cystoscopy with retrograde pyelogram (SURG) 2021 022 [email or web address] Not available 12:58:35 Imaging None recorded. Medication Orders None recorded. Patient TargetsNo targets recorded. Patient InstructionsNo instructions recorded. Reason for Referral None Reported. Results Created Date Observation Date Name Description Value Unit Range Abnormal Flag Note LastModifiedBy Organization Detail LastModifiedTime 08/14/19 22 08/12/2021 CT, pelvi s, w/wo contr ast No observ ation record ed. [email or web address] Not Available 2021 12:10:43 Result Notes None recorded. Procedures Surgical History Date Name Laterality Status Provider Name and Address Organization Details Recorded Time Appendectomy completed Guadalupe Rodriguez [facility] 08/19/2021 09:33:20 Imaging Results Imaging Date Name Status LastModified by Organiz ation Details LastModified Time 08/12/2021 CT, pelvis, w/wo contrast completed Information not available 08/15/2021 12:10:43 Procedure Notes None recorded. Medical Equipment None Reported. Allergies No known drug allergies Medications Name Sig Start Date Stop Date Status Note LastModified by Organization Details LastModified Time nicotine 14 mg/24 hr daily transdermal patch Apply 1 Patch on dry, clean, hairless skin once daily if needed. 08/19 completed Not Available Not Available Not Available polyethylen e glycol 3350 17 gram oral powder packet Mix 17 g in liquid then take by mouth once daily if needed. 08/19 completed Not Available Not Available Not Available bacitracin zinc 500 unit/gram topical ointment APPLY TOPICALLY TO NECK INCISIONS 2 TIMES DAILY 08/19 completed Not Available Not Available Not Available ciprofloxac in 500 mg tablet 08/19 completed Not Available Not Available Not Available oxycodone 5 mg tablet TAKE ONE TABLET BY MOUTH EVERY FOUR HOURS FOR PAIN NEEDED. 08/19 completed Not Available Not Available Not Available hydroxyzine pamoate 25 mg capsule TAKE 1 CAPSULE BY MOUTH EVERY 6-8 HOURS NEEDED 08/19 completed Not Available Not Available Not Available Senna-S 8.6 mg-50 mg tablet TAKE ONE TABLET BY MOUTH TWICE DAILY NEEDED 08/19 completed Not Available Not Available Not Available Vitals Date Recorded Body height Body mass index (BMI) Body weight Provider Name and Address Organization Details Last Updated DateTime 08/19/2021 175.26 cm 19.2 kg/m2 29650.01 g Guadalupe Rodriguez [facility] 08/19/2021 09:31:27 Social History Question Answer Notes LastModified by Organizat ion Details LastModified Time Tobacco Smoking Status Current Every Day Smoker Guadalupe Rodriguez [facility] 08/19/2021 09:33:03 What Is Your Level Of Alcohol Consumption? Moderate [email or web address] Information not available 08/19/2021 What Is Your Level Of Caffeine Consumption? Heavy [email or web address] Information not available 08/19/2021 What Is Your Relationship Status? [email or web address] Information not available 08/19/2021 Are You Sexually Active? Yes [email or web address] Information not available 08/19/2021 How Much Tobacco Do You Smoke? 0.5 PPD [email or web address] Information not available 08/19/2021 Do You Use Any Illicit Or Recreational Drugs? No [email or web address] Information not available 08/19/2021 Do You Or Have You Ever Used Any Other Forms Of Tobacco Or Nicotine? No [email or web address] Information not available 08/19/2021 Sex: Unknown Functional Status None recorded. Mental Status None recorded. Family History Relationship Description Onset Age of this Age Resolved Age Notes LastModified by Organization Details LastModified Time Father No current problems or disability [email or web address] Not available 08/19 09:32:11 Mother No current problems or disability [email or web address] Not available 08/19 09:32:11 Medical History Condition Response Other N High Blood Pressure N Kidney Stones Y Depression N Sexually Transmitted Infection N Cancer N Bleeding Disorder N Lung Disease N GERD/Acid Reflux N High Cholesterol N Diabetes N Heart Disease N Past Encounters Encounter ID Performer Location Encounter Start Date Encounter Closed Date Diagnosis/Indication Diagnosis SNOMED-CT Code Diagnosis ICD10 Code Diagnosis Note [id number] Jude Soria MD [facility] [address] 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 Emiliano Andersen. He had been advised to undergo biopsy but this has not been pursued. 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 I have advised the patient undergo cystoscopy with bladder biopsy, left retrograde ureteropye logram and possible stent. He would like to have this at [facility] if possible or at [facility]. The procedure, risk, possible complicati ons were discussed. Health Concerns Section Related Observation LastModified by Organization Detai ls LastModified Time None Recorded Concern Status LastModified by Organization Details LastModified Time None Recorded Advance Directives Directive None Recorded Payers Encounter Date Sequence Insurance Name Policy Number Policy Quiñonez Covered Member ID Quiñonez Member ID Guarantor Name 08/19/2021 1 [employer] (MEDICARE REPLACEMENT/ ADVANTAGE - PPO) [id number] Enoc Hopkins [id number] Enoc Hopkins Notes Date Note Type Note Provider Name and Address Organization Details Recorded Time 08/19/2021 text/html 71-year-old male and patient of Dr. Emiliano Andersen. Prior history of suspicious bladder lesion and was previously advised to undergo TURBT. This is never scheduled however. Patient recently hospitalized at [facility]. 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 Left pelvic sidewall inflammatory mass versus cancer also noted. Mild left hydronephrosis. Was scheduled to undergo cystoscopy possible biopsy with left retrograde and stent but noted to have Covid and was dismissed. Patient states he feels well and has never had symptoms. Voiding with good force of stream. Jude Soria MD [address], [place], [address], [facility] 08/19/2021 10:52:37
--- OUTSIDE RECORDS SUMMARY | 2024-11-07 19:59 | XMS_ITS | Clinical Summary ---
Author Organization [facility] Address [address] [place] [address] Care Team Providers Care Industrial Relations Worker Name Role Phone Andie Pineda RN Unavailable [phone] Joleen Chandler RN Unavailable [phone] Chana Mandujano RN Unavailable [phone] Irma Faustin MD Primary Care Provider Allergies [...] on file Legal Sex Male 8:38 AM DERRICK WORKER Gender Identity Not on file Sexual Orientation Not on file Occupation Industry Job Start Date Job End Date Disability Not on file Not on file Not on file Obstetrics History Last Filed Vital Signs Vital Sign Reading Time Taken Comments Blood Pressure 112/70 02/23/2024 7:39 AM CDT Pulse 80 02/23/2024 7:39 AM CDT Temperature 36.4 C (97.6 F) 08/14/2021 8:00 AM DERRICK WORKER Respiratory Rate 16 08/14/2021 8:00 AM DERRICK WORKER Oxygen Saturation 98% 02/23/2024 7:39 AM [...] Description 11/09/2024 10:40 AM CDT Office Visit [facility] [address] [place] [address] [place] [address] [place], [place] [id number] Health Maintenance Due Date Last Done Comments [...] history exists Medical Devices Implanted Type Area Food Technologist Device Identifier Shelf Expiration Date Model / Serial / Lot [id number] 1mesh 8x16cm Alloderm Rtu Thickhuman Implanted:Qty: 1 on 07/16/2018 by Lisseth Waters MD at [facility] Explanted:at [facility] (Quantity not on file) Left: Abdomen [employer] - Inamed 05/26/2020 [id number] / [id number] / Adhesion Barrier 3x4in Interceed Absorb - [id number] Implanted:Qty: 1 on 07/16/2018 by Lisseth Waters MD at [facility] Left: Abdomen [employer] H / Uro 09/23/2021 [id number]# / / [id number] Adhesion Barrier 3x4in Interceed Absorb - [id number] Implanted:Qty: 1 on 07/16/2018 by Lisseth Waters MD at [facility] [employer] Wom[employer] / Uro 06/25/2020 [id number]# / / [id number] Cashier Or Checker Stock Clerk 3.5mm Implanted:Qty: 1 on 04/22/2021 by Edin Odonnell MD at [facility] Explanted:at [facility] (Quantity not on file) Right: Neck 09/28/2025 [id number] / / [id number] Description:JUNIOR ORACLE DBA 3.5MM Procedures Procedure Name Priority Date/Time Associated Diagnosis Comments LIPID PANEL W REFLEX MEASURED LDL Routine 02/23/2024 8:06 AM CDT Screening, lipid CT ABDOMEN PELVIS W Routine 08/10/2021 1 0:13 AM DERRICK WORKER FLEXIBLE SIGMOIDOSCOPY 12:36 PM DERRICK WORKER from Last 3 Months or Most Recently Relevant to Health Maintenance Results * (ABNORMAL) LIPID PANEL W REFLEX MEASURED LDL (02/23/2024 8:06 AM CDT) CHOLESTEROL,TOTAL 263(H) 100 - 199 mg/dL 02/23/2024 5:14 PM CDT [facility] Comment: Cholesterol, Total Reference Ranges Desirable <200 mg/dL Borderline 200-239 mg/dL High >=240 mg/dL TRIGLYCERIDES 121 <150 mg/dL 02/23/2024 5:14 PM CDT [facility] HDL CHOLESTEROL 94 >40 mg/dL 5:14 PM CDT [facility] NON-HDL CHOLESTEROL 169(H) <145 mg/dl 02/23/2024 5:14 PM CDT [facility] TR[facility]ORY CHOL/HDL RATIO 2.80 <4.50 02/23/2024 5:14 PM CDT [facility] LDL CHOLESTEROL 145(H) <=130 mg/dL 02/23/2024 5:14 PM CDT [facility] VLDL CHOLESTEROL 24 <=30 mg/dL 02/23/2024 5:14 PM CDT [facility] TR[facility]AT[facility] PROVIDER ORDERED STATUS RANDOM 02/23/2024 5:14 PM CDT [facility] Blood BLOOD SPECIMEN / Unknown Venipuncture / Unknown 02/23/2024 8:06 AM CDT 02/23/2024 8:06 AM CDT us Irma Faustin MD CHEMISTRY Final R esult [facility] [address] [place] [address], [place] * CT ABDOMEN PELVIS W (08/10/2021 10:13 AM DERRICK WORKER) Anatomical Region Laterality Modality Abdomen, Pelvis, AORTA, LIVER, SPLEEN Computed Tomography 08/10/2021 5:35 PM DERRICK WORKER Narrative 08/10/2021 5:35 PM DERRICK WORKER For Patients: As a result of [...] Result * FLEXIBLE SIGMOIDOSCOPY (08/09/2021 12:36 PM DERRICK WORKER) 08/09/2021 12:3 6 PM DERRICK WORKER Narrative Transcriptions Harley Hutson MD - 08/09/2021 1:16 PM CST [facility] Patient Name: Enoc Hopkins Procedure Date: 08/09/2021 Gender: Male Date of : 1950 Admit Type: Inpatient Procedure: Flexible Sigmoidoscopy Proceduralist: Harley Hutson [facility] [place] Indications/Pre-Op Diagnosis: Abnormal CT of the GI [...] Insurance MEDICARE PART A HB ONLY MEDICA [employer] [facility] MEDICARE PPS Advance Directives * Full Code [...] 3:45 PM 12/08/2014 2:26 PM Care Teams Industrial Relations Worker Relationship Specialty Start [place] [address] [place] [address] PCP - General Family Practice 02/23/24 Andie Pineda RN [address] [address] Nurse Navigator - Oncology Oncology 03/15/21 Joleen Chandler, RN [address] [phone] Psychologist Industrial Organizational - [facility] Registered Nurse 05/27/21 Chana Mandujano RN [address] [phone] Psychologist Industrial Organizational - [facility] Registered Nurse 12/10/21 Jose Sherwood, RN [address] [address], [place], [place] [phone] Psychologist Industrial Organizational - [facility] Registered Nurse 02/02/23
[2024-11-07] MEDS: cephALEXin 500 MG CAPSULE PO (20:12)
== END 2024-11-07 20:13 | disposition home or self-care (01) ==
LOC: ED 19:57
PROVIDERS: Emergency Provider Emergency Medicine Emergency Medical Services
DX: N39.0 Urinary tract infection, site not specified (principal)
CPT/HCPCS: 81001; 81003; 87086; 99283; 99284; A9270

== ENCOUNTER 2024-12-20 07:35 | Outpatient (CLI) | payer MEDICARE, SELFPAY ==
--- NOTE | 2024-12-20 08:00 | CRLHL7_ITS ---
For Patients: As a result of the Century Cures Act, medical imaging exams and procedure reports are released immediately into your electronic medical record. You may view this report before your referring provider. If you have questions, please contact your health care provider. INDICATION: Calculus of kidney HX STONES, HEMATURIA HX FACIAL TUMOR TECHNIQUE: CT abdomen and pelvis urogram without and with 100 cc Isovue 370 IV contrast. Contrast images were obtained in the nephrographic and delayed phases. COMPARISON: 08/01/2021 CT, 06/27/2023 CT, 03/28/2021 CT head FINDINGS: KIDNEYS: The unenhanced images demonstrate no kidney or ureteral stones. The kidneys are normal in caliber and demonstrate normal uptake and excretion of IV contrast. No solid masses. Sub cm cysts within the left kidney. The renal collecting systems and ureters are symmetrical, normal in caliber, and without evidence of mass or filling defect. URINARY BLADDER: Left lateral bladder diverticulum is again noted which measures 2.5 cm. There is some irregular filling defect noted at the left ureterovesical junction. Lobular filling defect within the superior left bladder measures 2.2 cm. OTHER: Chronic bulky adenopathy within the left side of the pelvis measuring approximately 8.1 x 4.0 cm. Postop changes of partial colonic resection with left lower quadrant ostomy. Left inguinal hernia contains bowel loops. No mechanical obstruction. Pancreas and spleen normal. No intrahepatic mass. No calcified gallstone or biliary obstruction. Grade 1 degenerative spondylolisthesis of L4 on L5. No vertebral body compression fracture. IMPRESSION: 1. Chronic bulky low-density adenopathy within the left side of the pelvis measuring up to 8 cm. There is an adjacent lobular lymph node lesion extending into the left superior bladder measuring 2.2 cm. 2. Left lateral bladder diverticulum. Irregular filling defects within the left UVJ. Cystoscopy recommended for further evaluation. 3. No hydronephrosis or hydroureter. Please note that all CT scans at this facility use dose modulation, iterative reconstruction, and/or weight-based dosing when appropriate to reduce radiation dose to as low as reasonably achievable. Dictated by Narinder Wills MD @ 12/20/2024 10:19:17 AM (Electronically Signed)
[2024-12-20 08:03] LABS: Estimated Glomerular Filt Rate 79 ml/min
== END 2024-12-20 07:36 | disposition home or self-care (01) ==
LOC: CT 07:36
PROVIDERS: PCP Family Medicine; Visit Provider Student in an Organized Health Care Education/Training Program
DX: N20.0 Calculus of kidney (principal); N32.3 Diverticulum of bladder; R97.20 Elevated prostate specific antigen [PSA]
CPT/HCPCS: 36415; 74178; 82565; Q9967

== ENCOUNTER 2025-01-02 08:49 | Outpatient (CLI) | payer MEDICARE, SELFPAY ==
--- NOTE | 2025-01-02 09:15 | MR_ITS ---
[address] [address] Phone:?[phone] Fax:?[phone] Referring Physician Information: Fiordaliza Tolbert PA-C [id number] [facility] [address] Phone:?[phone] Fax:?[phone] Patient:Bautista Hopkins D.O.B:?1950 Sex:?Male Phone:?[phone] [facility] MRN:?[id number] Exam Date:?01/02/2025 EXAM: 1.5 MARBELLA MRI EXAM OF THE PROSTATE WITH AND WITHOUT IV CONTRAST WITH DYNACAD IMAGING CLINICAL INFORMATION: Elevated PSA. COMPARISON: None. TECHNICAL INFORMATION: Examination was performed on a 1.5 [place] magnet. High- resolution T1 axial, T2 axial, T2 FSE sagittal and T2 FSE coronal images were obtained through the prostate gland and seminal vesicles. Diffusion images were obtained in the axial plane. 20 mL of Dotarem were injected with dynamic enhanced images of the prostate gland in the axial plane. T1 fat saturation sagittal and coronal images were obtained postinjection. 3-D rendering with interpretation and reporting of MR imaging with postprocessing under concurrent supervision; requiring imaging postprocessing on an independent [employer] workstation. IV Contrast Discarded: 0 mL. INTERPRETATION: Prostate gland measures 52 x 49 x 45 mm, 67 mL. Transitional and central zones: Scattered stromal and glandular hyperplasia. No suspicious (PI RADS 3 or higher score) transitional zone lesion. Peripheral zones: Scattered T2 signal of the peripheral zones. No suspicious (PI RADS 3 or higher score) peripheral zone lesion. Pelvis: Prostate capsule, neurovascular bundles and seminal vesicles are unremarkable. No pelvic adenopathy or osseous lesion. Left-sided bladder diverticulum with 13 mm calculus or mass. Additional 20 mm lobulated possible mass along the superior margin of the urinary bladder, image 11/4. CONCLUSION: 1. Prostatomegaly, 67 mL. No suspicious (PI RADS 3 or higher score) transitional or peripheral zone lesions. 2. Small left-sided bladder diverticulum with questionable calculus/mass. Additional questionable lobulated 20 mm mass along superior wall of bladder. Cystoscopy correlation to exclude lesion is suggested. PI-RADS Scoring System: Score / Criteria ACR PI-RADS Peripheral Zone T2WI 1 = Uniformly hyperintense signal intensity (normal) 2 = Linear or wedge-shaped hypointensity, or diffuse mild hypointensity, usually indistinct margin 3 = Heterogenous signal intensity or non-circumscribed, rounded, moderate hypointensity. Includes others that do not qualify as 2,4,or 5 4 = Circumscribed, homogeneous moderate hypointense focus/mass confined to prostate and < 1.5 cm in greatest dimension 5 = Same as 4 but >=?1.5 cm in greatest dimension or definite extraprostatic extension/invasive behavior ACR PI-RADS Transition Zone T2WI 1 = Normal appearing TZ (rare) or a round, completely encapsulated nodule (typical nodule) 2 = A mostly encapsulated nodule OR a homogeneous circumscribed nodule without encapsulation. (atypical nodule) OR a homogenous midly hypointense area between nodules 3 = Heterogeneous signal intensity with obscured margins. Includes others that do not qualify as 2,4,or 5 4 = Lenticular or non-circumscribed, homogenous, moderately hypointense, and < 1.5 cm in greatest dimension 5 = Same as 4 but >=1.5 cm in greatest dimension or definite extraprostatic extension/invasive behavior ACR PI-RADS Assessment of DWI Peripheral Zone (PZ) or Transition Zone (TZ) 1 = No abnormality (i.e., normal) on ADC and high b-value DWI 2 = Linear/wedge shaped hypotense on ADC and/or linear wedge shaped hyperintense on high b-value DWI 3 = Focal (discrete and different from the background) hypointense on ADC and/or focal hyperintense on high b-value DWI, may be markedly hypointense on ADC or markedly hyperintense on high b-value DWI, but not both 4 = Focal markedly hypontense on ADC and markedly hyperintense on high b-value DWI; < 1.5 cm in greatest dimension 5 = Same as 4 but >=1.5 cm in greatest dimension or definite extraprostatic extension/invasive behavior ACR PI-RADS Assessment for DCE Negative (-) = No early or contemporaneous enhancement, or; diffuse multifocal enhancement NOT corresponding to a focal finding on T2W and/or DWI or focal enhancement corresponding to a lesion demonstrating features of BPH on T2WI (including features of extruded BPH in the PZ) Positive (+) = Focal, and; earlier than or contemporaneous with enhancement of adjacent normal prostatic tissues, and; corresponds to a suspicious finding on T2WI and/or DWI PI-RADS Assessment Categories: Score 1 = very low; clinically significant cancer is highly unlikely to be present Score 2 = low; clinically significant cancer is unlikely to be present Score 3 = intermediate; the presence of clinically significant cancer is equivocal Score 4 = high; clinically significant cancer is likely to be present Score 5 = very high; clinically significant cancer is highly likely to be present [facility] Electronically signed on 01/02/2025 1:13:00 PM by Leandro Correia M.D.
== END 2025-01-02 08:50 | disposition home or self-care (01) ==
LOC: MRI 08:51
PROVIDERS: PCP Family Medicine; Visit Provider Student in an Organized Health Care Education/Training Program
DX: R97.20 Elevated prostate specific antigen [PSA] (principal); N32.3 Diverticulum of bladder; R19.09 Other intra-abdominal and pelvic swelling, mass and lump
CPT/HCPCS: 72197; A9575